=== PATIENT | male | born 1950 | race Caucasian/White ===

== ENCOUNTER 2017-08-03 09:33 | Emergency (ER) | payer MEDICARE ==
--- NOTE | 2017-08-03 10:34 | ED ---
Lower Extremity - HPI Summary HPI Summary: Patient presents to the ED with CC of left calf pain, decreased sensation in the left foot, and temperature change since 2 days ago. He had a long segment arterial occlusion in November of this year with stent placement by Dr. Almaguer. He denied any pain s/p stent placement or symptoms of claudication, temperature changes or color changes to the extremity. Today, he notes to some acute left sided low back pain, tenderness over the femoral artery in the groin area on the left, foot pain which is worse with lying down, better with ambulation and calf pain which is better with ambulation and worse with lying down. He notes to feeling of cold and tingling sensation in his foot which improves after ambulating. He is a heavy smoker. He discontinued his plavix 2 months ago and denies any current anticoagulation. He denies SOB or chest pain. He notes to travel approxm 200 miles per day, but denies any PE or DVT to his knowledge. - History of Current Complaint Chief Complaint: EDExtremityLower Stated Complaint: LT LEG PAIN Time Seen by Provider: 08/03/17 10:12 Hx Obtained From: Patient Onset of Pain: Immediate Onset/Duration: Days Severity Initially: Moderate Severity Currently: Moderate Pain Intensity: 0 Pain Scale Used: 0-10 Numeric Timing: Intermittent, Lasting Minutes Location: Is Discrete @ - left calf and left foot Aggravating Factor(s): Other - lying flat Alleviating Factor(s): Other - ambulation Able to Bear Weight: Yes - Risk Factors Gout Risk Factors: Age Over 40, Male, Hypertension, Hyperlipidemia, Peripherial Vascular Disease DVT Risk Factors: Smoking, Recent Travel Septic Arthritis Risk Factor: Negative - Allergies/Home Medications Allergies/Adverse Reactions: Allergies Allergy/AdvReac Type Severity Reaction Status Date / Time No Known Allergies Allergy Verified 08/03/17 10:20 PMH/Surg Hx/FS Hx/Imm Hx Previously Healthy: Yes Endocrine/Hematology History: Denies: Hx Diabetes Cardiovascular History: Reports: Hx Hypertension - on medication Denies: Hx Pacemaker/ICD Respiratory History: Denies: Hx Asthma History: Reports: Hx Kidney Stones - removed 1994 Denies: Hx Dialysis, Hx Renal Disease Musculoskeletal History: Reports: Other Musculoskeletal History - RECURRING GANGLION LEFT WRIST Sensory History: Denies: Hx Contacts or Glasses, Hx Hearing Aid Opthamlomology History: Denies: Hx Contacts or Glasses Psychiatric History: Denies: Hx Panic Disorder - Surgical History Surgery Procedure, Year, and Place: 3 x right shoulder; lower back; Hx Anesthesia Reactions: No - Immunization History Hx Pertussis Vaccination: No Immunizations Up to Date: Unable to Obtain/Confirm Infectious Disease History: No Infectious Disease History: Denies: Traveled Outside the [place] in Last 30 Days - Social History Occupation: Employed Full-time Lives: With Family Alcohol Use: Weekly Alcohol Amount: 3-4 DRINKS/WEEK Hx Substance Use: Yes Substance Use Type: Reports: Marijuana Substance Use Comment - Amount & Last Used: OCCASIONAL, NOT RECENT Hx Tobacco Use: Yes Smoking Status (MU): Heavy Every Day Tobacco Smoker Type: Cigarettes Do You Chew or Dip Tobacco: No Amount Used/How Often: 1 PPD FOR 40 YRS Have You Chewed or Dipped Tobacco in the LAST YEAR: No Length of Time of Smoking/Using Tobacco: 40 YRS Have You Smoked in the Last Year: Yes Review of Systems Negative: Fever, Chills, Fatigue Eyes: Negative ENT: Negative Cardiovascular: Negative Respiratory: Negative Negative: no symptoms reported, see HPI Positive: Myalgia - left calf pain Positive: Paresthesia. Negative: Weakness, Numbness Psychological: Normal All Other Systems Reviewed And Are Negative: Yes Physical Exam Triage Information Reviewed: Yes Vital Signs On Initial Exam: Initial Vitals Temp Pulse Resp BP Pulse Ox 98.2 F 117 20 152/78 96 08/03/17 09:38 08/03/17 09:38 08/03/17 09:38 08/03/17 09:38 08/03/17 09:38 Vital Signs Reviewed: Yes Appearance: Positive: Well-Appearing, No Pain Distress, Well-Nourished Skin: Positive: Warm, Skin Color Reflects Adequate Perfusion Head/Face: Positive: Normal Head/Face Inspection Eyes: Positive: EOMI, DADA, Conjunctiva Clear Neck: Positive: Supple, No Lymphadenopathy Respiratory/Lung Sounds: Positive: Clear to Auscultation, Breath Sounds Present Cardiovascular: Positive: RRR, Other - weak intermittent pulse with doppler over bilateral pedal pulses, unable to appreciate posterior tibial or popliteal pulses Musculoskeletal: Positive: Pain @ - left hip and back Neurological: Positive: CN Intact II-III, Normal Gait, Speech Normal Psychiatric: Positive: Normal AVPU Assessment: Alert - [place] Coma Scale Coma Scale Total: 15 Diagnostics - Vital Signs Vital Signs Temp Pulse Resp BP Pulse Ox 08/03/17 10:17 98.2 F 92 20 138/64 94 08/03/17 09:38 98.2 F 117 20 152/78 96 - Laboratory Result Diagrams: 08/03/17 10:36 08/03/17 10:36 Lab Statement: Any lab studies that have been ordered have been reviewed, and results considered in the medical decision making process. Lower Extremity Course/Dx - Course Course Of Treatment: Patient presents with claudication, temperature changes, and slight discoloration to the left foot (pallor) 9 months s/p stent placement for long segment arterial occlusion. Dr. Almaguer placed stent. Called Dr. Almaguer at 10:30a who recommended checking kidney function and CTA. Doppler used to try to obtain pulses. Weak intermittent left pedal pulse found on doppler and unable to find left posterior tibial; unable to find the right pedal or posterior tibial on doppler. Unable to find popliteal on the left, but able to appreaciate on the right. Lab work obtained and WNL. CTA shows IMPRESSION: 1. COMPLETE OCCLUSION OF THE LEFT COMMON AND EXTERNAL ILIAC ARTERY STENT. 2. SEVERE ATHEROSCLEROTIC CHANGE IN THE SUPERFICIAL FEMORAL ARTERIES DESCRIBED. 3. THERE ARE 3 HYPERVASCULAR LESIONS WITHIN THE LIVER WHICH ARE UNCHANGED. RECOMMEND A. FOLLOW-UP HEPATIC ULTRASOUND FOR FURTHER EVALUATION. 4. STATUS POST POSTERIOR SPINAL FUSION ON THE RIGHT SIDE AT THE L 4 THROUGH S1 LEVELS. THERE IS LUCENCY AROUND THE PEDICLE SCREWS WITHIN THE L5 AND S1 VERTEBRA MOST CONSISTENT. WITH LOOSENING. Dr. Almaguer to see the patient in the ED at 1:30pm. Recommended follow up with him this week for possible re- stenting and recommended plavix 75mg daily. Given 30 days of rx. Patient made aware of all results and he is ready for discharge. - Diagnoses Differential Diagnosis/HQI/PQRI: Positive: Other - arterial occlusion, DVT, femoral artery occlusion Provider Diagnoses: Peripheral vascular disease, Arterial occlusion - Physician Notifications Discussed Care Of Patient With: Alejandro Almaguer Time Discussed With Above Provider: 13:55 - Discussed with Dr. Almaguer at 11am as well as 2pm Instructed by Provider To: Will See In ED - request out for consult with Dr. Almaguer Discharge - Discharge Plan Condition: Stable Disposition: HOME Prescriptions: Clopidogrel TAB* [Plavix TAB*] 75 mg PO DAILY #30 tab Patient Education Materials: Peripheral Artery Disease (ED) Referrals: Julio Diaz MD [Primary Care Provider] - Alejandro Almaguer MD [Medical Doctor] - Additional Instructions: Follow up with Dr. Almaguer's office this week. Call office for appt tomorrow morning Begin Plavix today. 1 tab once daily I have given you a prescription for 30 days
[2017-08-03 10:51] LABS: Hematocrit 40 % (42-52); Hemoglobin 13.6 g/dl (14.0-18.0); Mean Corpuscular HGB Conc 34 g/dl (31-36); Mean Corpuscular Hemoglobin 33 pg (27-31); Mean Corpuscular Volume 97 fL (80-94); Mean Platelet Volume 9 um3 (7.4-10.4); Red Blood Count 4.12 10^6/ul (4.0-5.4); Red Cell Distribution Width 13 % (10.5-15); White Blood Count 11.6 10^3/ul (3.5-10.8)
[2017-08-03 11:10] LABS: Albumin 4.3 g/dL (3.2-5.2); BUN/Creatinine Ratio 14.3 (8-20); C Reactive Protein 53.92 mg/L (< 5.00); Calcium 9.4 mg/dL (8.6-10.3); EGFR African American 117.6 (>60); EGFR Non-African American 91.4 (>60); Globulin 2.7 g/dL (2-4); Potassium 3.9 mmol/L (3.5-5.0); Total Bilirubin 0.8 mg/dL (0.2-1.0)
[2017-08-03] MEDS ORDERED: Iohexol 350* (CONTRAST) 500 ML MDV IV ONE (11:42)
[2017-08-03 12:01] LABS: Erythrocyte Sed Rate 36 mm/Hr (0-40)
--- NOTE | 2017-08-03 12:53 | RAD ---
INDICATION: Claudication, possible occlusion of the previous left iliac stent. COMPARISON: Comparison is made with a prior CT angiogram of the abdomen and lower legs from October 16, 2016. TECHNIQUE: A CT angiogram of the abdomen and pelvis and lower extremities was performed with intravenous contrast following intravenous injection of 125 ml of Omnipaque 350 nonionic contrast. Contiguous axial sections were obtained from the lung bases through the ankles. Images were reconstructed in the coronal and sagittal planes and in a 3-D volume rendered reformatted. FINDINGS: CT OF THE ABDOMEN AND PELVIS: Images at the lung bases demonstrate mild left lower lobe subsegmental atelectasis. No pleural effusion is seen. The liver and spleen are normal in size. There are 2 small hypodense lesions present within the left hepatic lobe. These are unchanged from the prior exam and most consistent with cysts. The larger lesion measures 1.4 cm in size. In addition, there are 3 small hypervascular lesions within the right hepatic lobe. The largest lesion measures 0.9 cm in size. These are unchanged from the prior exam. The imaging characteristics are nonspecific although would favor hemangiomas. Recommend a follow-up right upper quadrant ultrasound as previously noted. No calcified gallstones are seen. The pancreas appears to be within normal limits. There is a hypodense splenic lesion measuring 1.3 cm in size which is unchanged. The kidneys and adrenal glands are normal in size. No hydronephrosis is seen. No significant focal renal abnormality is seen. No significant enlarged retroperitoneal lymph nodes are seen. The stomach, small and large bowel appear nondistended. The appendix appears normal. There is moderate sigmoid diverticulosis without evidence for diverticulitis. No free intraperitoneal air or fluid is seen. The patient is status post posterior spinal fusion at the L4-S1 levels on the right side with pedicle screws. There is lucency around the pedicle screws in the L5 and S1 vertebra suggestive of loosening. There is bilateral spondylolysis present bilaterally at the L5 level. CT ANGIOGRAM OF THE ABDOMINAL AORTA: The abdominal aorta is normal in caliber. There is mild to moderate calcific and soft plaque present. The celiac, superior mesenteric and inferior mesenteric arteries appear widely patent. There are single bilateral renal arteries with mild to moderate plaque present at the origin of both arteries. CT ANGIOGRAM OF THE RIGHT LOWER EXTREMITY, RIGHT ILIAC VESSELS: There is moderate calcific plaque present within the common and external iliac arteries with mild narrowing of the common iliac artery. No hemodynamically significant stenosis is seen. The common femoral artery appears patent. The proximal and midportion of the superficial femoral artery appear widely patent. There is severe atherosclerotic change and areas of high-grade stenosis and possibly occlusion in the distal superficial femoral artery. The popliteal artery appears widely patent. There is three-vessel runoff to the lower leg. CT ANGIOGRAM LEFT LOWER EXTREMITY, LEFT ILIAC VESSELS: There is an occluded stent which extends from the aortic bifurcation to the junction of the external iliac and common femoral arteries. The superficial femoral artery is severely attenuated throughout with occlusion of the distal portion of the artery. There is reconstitution of the popliteal artery which appears widely patent. There is three-vessel runoff to the lower leg. IMPRESSION: 1. COMPLETE OCCLUSION OF THE LEFT COMMON AND EXTERNAL ILIAC ARTERY STENT. 2. SEVERE ATHEROSCLEROTIC CHANGE IN THE SUPERFICIAL FEMORAL ARTERIES DESCRIBED. 3. THERE ARE 3 HYPERVASCULAR LESIONS WITHIN THE LIVER WHICH ARE UNCHANGED. RECOMMEND A FOLLOW-UP HEPATIC ULTRASOUND FOR FURTHER EVALUATION. 4. STATUS POST POSTERIOR SPINAL FUSION ON THE RIGHT SIDE AT THE L 4 THROUGH S1 LEVELS. THERE IS LUCENCY AROUND THE PEDICLE SCREWS WITHIN THE L5 AND S1 VERTEBRA MOST CONSISTENT WITH LOOSENING.
[2017-08-03 14:30] VITALS: BP 118/65
--- NOTE | 2017-08-03 14:51 | CONSULT ---
Consult Consult: Date of Service: 08/03/17 Reason for Consultation: Sudden onset left leg pain with history of left iliac artery revascularization and stenting 11/06/16 HPI: Mr. Franks is a 66 YOM that is 9 months status revascularization and stenting of the left common and external iliac arteries with two overlapping 7x59 mm Atrium Icast covered stents. Until 08/01/17 Mr. Franks experienced reduction in LLE claudication and rest pain. On 08/01/17 he reports feeling a sudden onset of pain in his groin when getting out of his car. From that point until present he has had LLE pain that would onset after walking only 20 yards. At rest he experiences aching pain in his posterior leg down his heel and into foot. He denies paresthesia or weakness of the LLE. He denies any significant discoloration of the leg, foot or toes. He continues to smoke up to 1/2 PPD cigarettes daily. In addition to widespread atherosclerosis his medical history is significant for right side L4-S1 transpedicular fixation. PE: Selected Entries 08/03/17 08/03/17 11:38 14:30 Temperature 98.3 F Temperature Temporal Artery Source Scan Pulse Rate 84 Respiratory 16 Rate Blood Pressure 118/65 (mmHg) O2 Sat by Pulse 95 Oximetry NAD, AAO x 3 RRR, S1/S2 CTAB wtih vesicular breath sounds Abdomen soft, NT Cannot palpate left BARIATRIC NURSE or pop pulse 1+ palpable left DPA left foot and leg are warm to touch 5/5 motor strength in LLE Sensation to light touch intact CTA Aorta w/ runoff: (personally reviewed by me) Occlusion of the left MOIRA-EIA stent with long segment narrowing of the left SFA w/wo focal occlusion of the SFA at the junction with the popliteal artery. Essentially CTA is similar to pre-intervention CTA dated 10/16/16. Laboratory Tests 08/03/17 10:36 WBC 11.6 H Hgb 13.6 L Hct 40 L Assessment: 66 YOM with occluded left MOIRA-EIA stent 9 months post intervention. Plan: As was discussed with Mr. Franks in the ER, the options are: to do nothing as he is essentially in the same situation from a vascular standpoint that he was when I first met him in the fall 2015; undergo angiography and attempt revascularization likely with paclitaxel coated balloons; or see a vascular surgeon to discuss surgical bypass options. The endovascular option will be technically feasible as it occlusion appears "soft" on CTA and his recurrence of symptoms is new. I will likely elect to try to revascularize the left SFA during the same intervention to augment the outflow of the stented left iliac arteries. But experience, and the fact that he continues to smoking, indicate that the longevity of the intervention will be limited. He will be discharged from the ER and I will call him tomorrow to inquire about his decision. 1. Plavix 75 mg PO daily (in preparation of potential angiographic procedure). 2. D/C home for now. Our clinic will call him tomorrow, Wednesday08/04/17.
== END 2017-08-03 14:30 | disposition home or self-care (01) ==
LOC: ED 09:33
DX: I73.9 Peripheral vascular disease, unspecified (principal); I74.9 Embolism and thrombosis of unspecified artery; M79.662 Pain in left lower leg
CPT/HCPCS: 36415; 75635; 80053; 82550; 83874; 85027; 85610; 85652; 86140; 99282; Q9967

== ENCOUNTER 2017-08-05 10:25 | Inpatient (IN) | payer MEDICARE ==
[2017-08-05] MEDS ORDERED: LORazepam TAB(*) 1 MG ONE (11:34)
[2017-08-05] MEDS ORDERED: Heparin DRIP 25,000 UNITS(*) 25,000 UNITS/500 ML BAG IVPB SCH (11:45)
[2017-08-05] MEDS ORDERED: Iohexol 350 (CONTRAST) 200 ML MDV IV ONE (12:16)
[2017-08-05] MEDS ORDERED: Heparin DRIP 25,000 UNITS(*) 25,000 UNITS/500 ML BAG ONE (12:16)
[2017-08-05] MEDS ORDERED: Heparin 2 UNITS/ML IVPREMIX* 3,000 ML IV ONE (12:16)
[2017-08-05] MEDS ORDERED: Lidocaine 1% INJ* 10 MG/ML 30 ML SDV ONE ×2 (12:16→13:38)
[2017-08-05] MEDS ORDERED: Midazolam* 1 MG/ML 5 ML VIAL (5 MG) ONE (12:37)
[2017-08-05] MEDS ORDERED: fentaNYL* 50 MCG/ML 2 ML VIAL (100 MCG VIAL) ONE ×3 (12:37→13:36)
[2017-08-05] MEDS ORDERED: Heparin(*) 1000 UNIT/ML 10 ML VIAL CATH LAB IV ONE (12:46)
[2017-08-05] MEDS ORDERED: Acetaminophen TAB* 325 MG PO PRN (15:28)
[2017-08-05] MEDS ORDERED: Ondansetron INJ* 2 MG/ML VIAL IV PRN (15:29)
--- NOTE | 2017-08-05 15:31 | CONSULT ---
Consult Consult: CRITICAL CARE MEDICINE DATE: 08/05/17 TIME: 1500 REFERRING PROVIDER: Tripp REASON/CHIEF COMPLAINT: post IR with TPA infusion HISTORY OF PRESENT ILLNESS: 66 M with h/o ongoing tob use with stent to left common and external iliac arteries 9 months ago with acute onset of worsening sx with left groin pain down leg. Eval with IR and today went for sheath and catheter placement for tpa infusion. Required sheath insertion on R and over to left with wire traversing stent. TPA and heparin gtts started with pharmacy assistance. Sheath in place and pt tolerating well. Needing ICU care for continuous tpa infusion and plans to return to OR tomorrow am. REVIEW OF SYSTEMS: As per HPI. PAST MEDICAL HISTORY: As per HPI. L4-S1 fixation in [place] MEDICATIONS: Reviewed. asa 325mg, plavix 75mg, nifedipine , Lipitor ALLERGIES: Reviewed. SOCIAL HISTORY: Reviewed. 1/2 ppd tob (cutting down); denies regular etoh use. FAMILY HISTORY: Noncontributory at present. PHYSICAL EXAM: Vital Signs: Reviewed. Neurologic: awake, nonfocal HEENT: anicteric, perrl Cardiovascular: S1 S2, reg no m Respiratory: clear Abdomen: obesem soft nt Extremities: left foot colder then R. No parsthesia complaints other then mild at plantar of foot. weak to palpate pulse at baseline. Good movement of leg. LABS: Reviewed. IMAGING: Reviewed. MEDICATIONS: Reviewed. ASSESSMENT: 66 M with acute stent occlusion undergoing tpa/heparin infusions with return OR eval tomorrow am PAD Tob use disorder PLAN: Neurologic: stable. prns. has chronic back pain. Cardiovascular: perfusing globally. No cardiac history from pt other then HTN. can remain on oupt rx. Respiratory: tolerating well. add nicotine td and inhaled. tob cessation. prn nebs Gastrointestinal: po as able. npo for needs tomorrow Renal/Metabolic: cruz for comfort and monitoring. lytes with am labs Infectious Disease: no abx needs Hematology: f/u labs per IR. ptt goal 30-40 Endocrine: f/u and glu needs Musculoskeletal: bedrest. reverese trendelenberg. orders per IR for neurovascular checks Psych/Social: pt in good spirits Supportive and preventative care as ordered. SUP: po as able VTE prophylaxis: heparin gtt already Cruz catheter given critical illness Disposition: ICU with IR following Code Status: Full Critical Care Time: 35min D/w Dr. Tripp Alvarado, DO
[2017-08-05] MEDS: ALTEPLASE SCH ×2 (15:39)
[2017-08-05] MEDS ORDERED: Nicotine Inhaler* 10 MG AMP INH PRN (15:51)
[2017-08-05] MEDS ORDERED: Mouth Piece, Nicotine* 1 EACH CARTRIDGE INH ONE (16:00)
[2017-08-05 16:01] LABS: Hematocrit 39 % (42-52); Hemoglobin 12.9 g/dl (14.0-18.0)
[2017-08-05] MEDS: Nicotine PATCH 21 MG/24 HR* PATCH TRANSDERM SCH (16:29)
[2017-08-05] MEDS: Morphine INJ* 2 MG/ML 1 ML SYRINGE IV PRN ×2 (17:13→21:15)
[2017-08-05] MEDS: Atorvastatin* 20 MG TAB PO SCH (17:13)
[2017-08-05] MEDS ORDERED: Albuterol 2.5 MG/3 ML NEB.SOL* (0.083%) INH PRN (17:14)
--- NOTE | 2017-08-05 18:20 | RAD ---
CPT II Codes: 6045F Procedure(s) performed: 1. Diagnostic pelvic arteriogram. (Despite recent CTA this imaging was necessary to more carefully depict the occluded left iliac stents for the purpose of a revascularization procedure). 2. Wire and catheter crossing across occluded left common and external iliac arterial stents for the purpose of overnight TPA thrombolysis. Date of service: August 05, 2017 Indication for procedure: Acute to subacute occlusion of left common and external iliac arterial stents that were placed November 06, 2016. Comparison: CTA aorta with runoff dated August 03, 2017 and angiographic images from the patient's November 06, 2016 left common and external iliac artery revascularization and stenting. Contrast: 65 mL Omnipaque 350 Fluoroscopy Time: 10.6 minutes Vessels Accessed: Percutaneous access was obtained with ultrasound guidance in the left common femoral artery in the retrograde direction. A working sheath could not be advanced into this artery due to more superior occlusion and therefore right common femoral arterial access was obtained. Right common femoral arterial access was obtained with ultrasound guidance in the retrograde direction towards the heart. Catheter arteriography, with the catheter tip located within the lumen of the following arteries, was performed at the right external iliac artery and aorta. Anesthesia: Conscious sedation with IV Fentanyl and Versed as well as local 1% lidocaine injected locally at the arteriotomy site. Conscious sedation time: Timeout: 1247 hours Case end: 1437 hours Total conscious sedation time: 1 hour and 50 minutes Additional medications: * Initiation of intra-arterial catheter directed TPA. * IV heparin 2500 Units. * The patient received 1 mg of p.o. Ativan prior to the onset of the procedure. PROCEDURE NOTE AND INTRAPROCEDURAL IMAGING FINDINGS: Immediately prior to the procedure the patient signed consent after thoroughly discussing all risks, benefits and alternative therapies. A detailed discussion at the time of consent was held with the patient talking about complications specific to TPA thrombolysis therapy including bleeding risks and compartment syndrome. The patient was positioned on the fluoroscopy table in the supine position and the bilateral groins were shaved, prepped and the patient was draped in standard sterile fashion. Using fluoroscopic imaging the location of the left common femoral head was marked externally with a skin marker on the patient's groin. Utilizing sonographic guidance and palpation, the left common femoral artery was cannulated overlying the femoral head with an 21-gauge needle. An ultrasound image was saved. A microwire was slowly and smoothly advanced in the retrograde direction towards the occluded left iliac stents. The microwire was not able to be advanced beyond the distal cap of the occluded left iliac stent. With a very small wire "purchase" attempt was made to advance a 5-Yemeni sheath into the artery without success. Despite successful needle and microwire access disease in the left common femoral artery a sheath could not be advanced into the arterial lumen. At this point it was determined to access the right common femoral artery to attempt to revascularize the occluded stent from the contralateral access point. Using fluoroscopic imaging the location of the right common femoral head was marked externally with a skin marker on the patient's groin. Utilizing sonographic guidance and palpation, the right common femoral artery was cannulated overlying the femoral head with an 21-gauge needle. An ultrasound image was saved. A microwire was slowly and smoothly advanced into the common femoral artery under sonographic and fluoroscopic imaging. There was a small amount of buckling of the wire. The wire was retracted and advanced further to determine whether this was the consequence of dissection or tortuosity of the arterial lumen. Ultimately the wire was smoothly advanced under fluoroscopic control into the infrarenal abdominal aorta. The needle was removed and a 5-Yemeni sheath was advanced into the right common femoral artery with the tip terminating at the distal right external iliac artery. Contrast arteriography was performed to further discern if a dissection occurred. Arteriography indicated true lumen access. The inner stiffener and microwire were removed and a 0.035 inch hydrophilic wire was advanced up to the aorta under fluoroscopic control without buckling or bending of the wire. The 5-Yemeni catheter was replaced with a 5-Yemeni SideArm sheath. The patient conveyed discomfort when the sheath was advanced. A second arteriogram was performed through the side arm of the access sheath again demonstrating intraluminal access and no dissection. Over the wire a 5-Yemeni straight flush catheter was advanced into the abdominal aorta and with the tip in the distal aorta a distal aortogram and bilateral iliac arteriogram was performed. This further confirmed long segment occlusion of the left internal iliac artery stents with reconstituted filling of the diminutive left common femoral artery on the delayed phase imaging. There is questionable filling of contrast in a dissection plane along the distal right lateral margin of the infrarenal abdominal aorta at the level of the lumbar arteries. Subsequent imaging taken minutes after this image does not show any retention of contrast in a dissection plane. The wire was reinserted and the flush catheter replaced with a 5-Yemeni rim catheter. Utilizing a combination of this reverse curve catheter and a hydrophilic Glidewire the proximal calf of the occluded stent was accessed and wire cannulation across the occluded stent was achieved ultimately advancing the wire as far as the left superficial femoral artery. Next, a 5-Yemeni [employer] Claire 10 cm multi sidehole catheter was advanced over the wire into the thrombosed left iliac stent. Blood could not be aspirated through the side arm of the 5-Yemeni sheath and therefore it was decided to upsize the access sheath to a 6-Yemeni sheath. Over the wire the multiside hole flush catheter was removed followed by the 5-Yemeni SideArm sheath. A 6-Yemeni SideArm C was then advanced under fluoroscopic control until the tip terminated at the right external iliac artery. The 5-Yemeni 10 cm length multi-sidehole catheter was advanced again into the thrombosed stent and then beyond into the left common femoral and superficial femoral arteries. At this point the side arm of the access sheath was connected to a pressure bag of heparinized saline for slow infusion to maintain patency of the sheath. After removing all air from the infusion catheter the infusion catheter was connected to tubing for the TPA infusion. The infusion catheter was then drawn back under fluoroscopic control so it appropriately spanned the occluded left iliac artery stents. A pursestring suture was tied around the sheath exit site in the right groin and then the suture was secured to the sheath. Next the infusion catheter was marked indicating externally the appropriate location of the catheter to be covering the thrombosed stent. The entire area was then dressed with sterile gauze and Tegaderm to maintain sterility and 2 prevent migration of either the sheath or catheter in the ICU. The left groin was dressed with a Kristine from dressing secured with a transparent Tegaderm for the Z visible evaluation in the ICU. The patient tolerated the procedure well and was transferred to the intensive care unit for overnight TPA catheter thrombolysis. SUMMARY OF PROCEDURE, IMAGING FINDINGS AND INTERVENTIONS PERFORMED: 1. Diagnostic studies performed: * Arterial access was obtained at the left common femoral artery in the retrograde direction (i.e. towards the heart) with ultrasound guidance. A sonographic image was recorded. Unfortunately despite adequate needle and wire cannulation a workable sheath could not be advanced into the diminutive artery due to more superior arterial occlusion. * Arterial access was obtained at the left common femoral artery in the retrograde direction (i.e. towards the heart) with ultrasound guidance. A sonographic image was recorded. * Diagnostic catheter angiography (necessary to carefully characterize the occluded left iliac artery stents and to perform the appropriate interventions) was performed with the catheter tip in the left external iliac artery and aorta. * Catheter arteriography was performed of the lower abdominal aorta, bilateral iliac arterial system and the proximal portions of the femoral arteries. 2. Interpretation of diagnostic studies performed: * Full length occlusion of previously deployed left iliac artery stents. * The aortogram revealed what appeared to be contrast filling a right of midline dissection plane at the level of the lower lumbar arteries. Subsequent imaging at this area did not reveal retention of contrast in this area indicating this was a transient occurrence. 3. Surgical interventions performed: * Catheter and wire cannulation of the occluded left iliac artery stents from the contralateral right common femoral arterial access point in the antegrade direction. * Placement of a multi-sidehole infusion catheter across the occluded right common iliac artery stents. 4. Interpretation of interventions performed: * The multi-sidehole infusion catheter is appropriately positioned to deliver TPA thrombolysis overnight in the ICU to the occluded left iliac artery stent. Plan: 1. Admission to the intensive care unit where the patient will receive a slow infusion of tpa 1 mg/10 mL into the multi sidehole catheter which spans the occluded left iliac artery stent. 2. Heparin gtt titrated to achieve a PTT of 30-40. 3. Appropriate laboratory monitoring will include H \\T\\ H, fibrinogen level and PTT. 4. The ICU staff was carefully instructed to monitor for signs of compartment syndrome listed and described in a "nursing communication" order and in person. 5. Clinical management as well as signs of complication were discussed and reviewed with the ICU attending as well as the nurse practitioner from the hospitalist staff. All parties were given Dr. Almaguer's contact numbers and encouraged to call with any questions or suspicion of complication.
--- NOTE | 2017-08-05 18:59 | PN ---
Progress Note - Progress Note Date of Service: 08/05/17 SOAP: Subjective: Patient with pain complaints of 4/10 at left distal foot and low back as well as 6/10 pain at right HOME THEATER SPECIALIST sheath site. Denies numbness different from what he experiences at home in the left leg before this intervention. Objective: [] Laboratory Tests 08/05/17 08/05/17 08/05/17 11:00 15:48 15:48 Hgb 12.9 L Hct 39 L APTT 28.9 34.1 Fibrinogen 536 H 462 H 08/05/17 17:25 Hgb Hct APTT Fibrinogen 387 Selected Entries 08/05/17 18:16 Pulse Rate 81 Heart Rate 80 Respiratory 15 Rate Blood Pressure 144/78 (mmHg) Blood Pressure 91 Mean O2 Sat by Pulse 95 Oximetry Doppler pulses at left DPA and SURFACER remain present. NAD, AAO x 3 Right HOME THEATER SPECIALIST sheath site is tender to palpation, but soft and the dressing has stable dried blood. Catheter is in stable position. Left groin soft, nontender with C/D/I dressing. Left great toe with cyanotic discoloration. Great toe capillary refill exceeds 2 seconds. During bedside the evaluation the patient was allowed to dangle his left leg over the side of the bed and his foot and toes "pinked" up and his left foot pain resolved within seconds. Assessment: 66 YOM status post pelvic arteriogram and multi-sidehole catheter placement across his recently occluded left iliac stents for the purpose of overnight TPA infusion. Plan: 1. Overnight TPA infusion through multi-sidehole catheter (inserted via right HOME THEATER SPECIALIST access sheath) positioned in occluded left iliac stent at a rate of 1 mg/ 10mL per hour. 2. Heparin infusion currently at 400 U/hr for goal PTT of 30-40. 3. Q 2hours LLE exams for compartment syndrome as described and instructed by Dr. Almaguer. Should this rare complication occur, Dr. Devine is the orthopedic surgeon director of clinical applications and is prepared to do emergent fasciotomy if necessary. 4. H&H, fibrinogen and PTT checks as ordered. If fibrinogen <100, then stop TPA and call Dr. Almaguer 5. Anticipate repeat pelvic arteriography and stent repair 08/06/17 at 0800 hours.
[2017-08-05 20:07] LABS: Hematocrit 38 % (42-52); Hemoglobin 12.5 g/dl (14.0-18.0)
[2017-08-05] MEDS ORDERED: Nicotine Patch Removal NOTE PATCH OFF SCH (21:00)
[2017-08-05] MEDS: Morphine INJ* 2 MG/ML 1 ML SYRINGE ONE (23:32)
[2017-08-06 01:17] LABS: Hematocrit 35 % (42-52); Hemoglobin 11.7 g/dl (14.0-18.0)
[2017-08-06] MEDS: Morphine INJ* 2 MG/ML 1 ML SYRINGE IV PRN ×5 (01:31→12:35)
[2017-08-06] MEDS ORDERED: NS 0.9% 1000 ML* 1,000 ML IV SCH (04:45)
[2017-08-06 06:41] LABS: Hematocrit 36 % (42-52); Hemoglobin 11.9 g/dl (14.0-18.0); Mean Corpuscular HGB Conc 33 g/dl (31-36); Mean Corpuscular Hemoglobin 33 pg (27-31); Mean Corpuscular Volume 98 fL (80-94); Mean Platelet Volume 9 um3 (7.4-10.4); Red Blood Count 3.66 10^6/ul (4.0-5.4); Red Cell Distribution Width 13 % (10.5-15); White Blood Count 11.8 10^3/ul (3.5-10.8)
[2017-08-06 07:32] LABS: BUN/Creatinine Ratio 12.7 (8-20); Calcium 8.5 mg/dL (8.6-10.3); EGFR African American 163.9 (>60); EGFR Non-African American 127.4 (>60); Potassium 3.9 mmol/L (3.5-5.0)
[2017-08-06] MEDS ORDERED: ceFAZolin 1 GM VIAL(*) 1 GM in NS 0.9% 50 ML* 50 ML IVPB ONE (07:41)
--- NOTE | 2017-08-06 07:55 | PN ---
Progress Note - Progress Note Date of Service: 08/06/17 SOAP: Subjective: 4/10 pain at bilateral groins and back. Patient reports "tingling" along plantar surface of foot and heel not different than his baseline Objective: [] Selected Entries 08/06/17 08/06/17 08/06/17 07:00 07:20 07:24 Temperature 100.6 F Pulse Rate 80 Heart Rate 79 Respiratory 14 Rate Blood Pressure 156/74 (mmHg) Blood Pressure 113 Mean O2 Sat by Pulse 95 Oximetry Laboratory Tests 08/06/17 08/06/17 08/06/17 06:14 06:14 06:14 WBC 11.8 H Hgb 11.9 L Hct 36 L APTT 39.2 H Fibrinogen 315 BUN 8 Creatinine 0.63 L Est GFR (Non-Af Amer) 127.4 NAD, AAO x 3 Abdomen soft, NT Bruising and "ooze" at skin nicks in left groin. Groin is soft. Right LABORER SHAFT SINKING sheath site is soft, minimally tender Left foot doppler pulses present Left foot motor function grossly intact No significant tenderness in lower leg No pain elicited with passive dorsi/plantar flexion of the left ankle Sensation intact to light touch Assessment: 66 YOM s/p catheter directed tpa infusion into occluded left iliac stents. "Oozing" at left groin from skin nicks appears to be superficial. There is ecchymosis, but no firmness to indicate hematoma formation or active arterial bleed. Mild leukocytosis and temperature is suspected to be inflammatory related to superficial ecchymosis. Plan: 1. To angiography suite to evaluate left iliac artery clot lysis and potentially repair stent. 2. Ancef 1 gram now. 3. Blood cultures to be sent. 4. Manual pressure to left groin. Underlying artery will be evaluated during procedure- arterial bleed unlikely. Bleeding/oozing will subside after cessation of heparin and tpa.
[2017-08-06] MEDS ORDERED: fentaNYL* 50 MCG/ML 2 ML VIAL (100 MCG VIAL) ONE ×4 (07:59→10:36)
[2017-08-06] MEDS ORDERED: Heparin 2 UNITS/ML IVPREMIX* 2,000 ML IV ONE (07:59)
[2017-08-06] MEDS ORDERED: Flumazenil* 0.1 MG/ML 5 ML MDV ONE (07:59)
[2017-08-06] MEDS ORDERED: Naloxone* 0.4 MG/ML 1 ML VIAL ONE (07:59)
[2017-08-06] MEDS ORDERED: Midazolam* 1 MG/ML 5 ML VIAL (5 MG) ONE ×2 (07:59→10:36)
[2017-08-06] MEDS ORDERED: Heparin(*) 1000 UNIT/ML 10 ML VIAL CATH LAB IV ONE (07:59)
[2017-08-06] MEDS ORDERED: ALTEPLASE ONE ×2 (08:00)
[2017-08-06] MEDS ORDERED: Iohexol 350 (CONTRAST) 200 ML MDV IV ONE (08:00)
[2017-08-06] MEDS ORDERED: Lidocaine 1% INJ* 10 MG/ML 30 ML SDV ONE (08:32)
[2017-08-06] MEDS ORDERED: Pneumococcal *Vac Polyvalent 0.5 ML VIAL IM ONE (09:00)
[2017-08-06] MEDS ORDERED: NIFEdipine ER TAB* 30 MG PO SCH (09:00)
[2017-08-06] MEDS ORDERED: Aspirin EC TAB* 325 MG PO SCH (09:00)
[2017-08-06] MEDS ORDERED: Influenza VAC *QUAD* 2017-18* 0.5 ML SYRINGE IM ONE (09:00)
[2017-08-06] MEDS ORDERED: Clopidogrel TAB* 75 MG PO SCH (09:00)
[2017-08-06] MEDS ORDERED: Heparin 2 UNITS/ML IVPREMIX* 1,000 ML IV ONE (09:31)
[2017-08-06] MEDS ORDERED: nitroGLYCERIN DRIP* 250 ML ONE (10:04)
[2017-08-06] MEDS: Nicotine PATCH 21 MG/24 HR* PATCH TRANSDERM SCH (11:34)
[2017-08-06] MEDS ORDERED: Morphine INJ* 4 MG/ML 1 ML SYRINGE IV ONE (12:15)
[2017-08-06] MEDS ORDERED: Lidocaine 2% PF * 5 ML VIAL ONE (12:31)
[2017-08-06] MEDS: Morphine INJ* 2 MG/ML 1 ML SYRINGE ONE (12:40)
[2017-08-06] MEDS: ALTEPLASE SCH ×2 (14:17)
--- NOTE | 2017-08-06 16:35 | PN ---
Subjective Date of Service: 08/06/17 Interval History: Mr. Franks states that he is feeling much better now though he has pain in his groins after the procedure. He denies pain in his legs now. He further denies chest pain, SOB, nausea, or abdominal pain. Objective Active Medications: Acetaminophen (Tylenol Tab*) 650 mg PO Q4H PRN Albuterol (Ventolin 2.5 Mg/3 Ml Neb.Iris*) 2.5 mg INH Q4H PRN Aspirin (Ecotrin Ec Tab*) 325 mg PO DAILY [facility] Atorvastatin Calcium (Lipitor*) 20 mg PO QPM [facility] Clopidogrel Bisulfate (Plavix Tab*) 75 mg PO DAILY [facility] Sodium Chloride (Ns 0.9% 1000 Ml*) 1,000 mls @ 150 mls/hr IV PER RATE [facility] Morphine Sulfate (Morphine Inj (Syringe)*) 2 mg IV Q2H PRN Nicotine (Nicotine Inhaler*) 10 mg INH Q2H PRN Nicotine (Nicotine Patch 21 Mg/24 Hr*) 1 patch TRANSDERM DAILY@0800 [facility] Nifedipine (Procardia Xl Tab*) 30 mg PO DAILY [facility] Ondansetron HCl (Zofran Inj*) 4 mg IV Q6H PRN Pharmacy Profile Note (Nicotine Patch Removal Note*) 1 note PATCH OFF 2100 [facility] Vital Signs 08/05/17 08/05/17 08/05/17 16:30 16:45 17:00 Temperature Pulse Rate 74 75 77 Respiratory 17 17 20 Rate Blood Pressure 139/71 134/70 134/67 (mmHg) O2 Sat by Pulse 94 96 96 Oximetry 08/05/17 08/05/17 08/05/17 17:13 17:15 17:30 Temperature Pulse Rate 79 82 Respiratory 20 19 22 Rate Blood Pressure 149/69 139/72 (mmHg) O2 Sat by Pulse 96 95 Oximetry 08/05/17 08/05/17 08/05/17 17:45 18:00 18:01 Temperature Pulse Rate 78 84 Respiratory 20 14 16 Rate Blood Pressure 140/70 133/79 (mmHg) O2 Sat by Pulse 95 95 Oximetry 08/05/17 08/05/17 08/05/17 18:16 18:30 18:45 Temperature Pulse Rate 81 83 78 Respiratory 15 21 20 Rate Blood Pressure 144/78 162/81 161/76 (mmHg) O2 Sat by Pulse 95 95 94 Oximetry 0908/05/17 08/05/17 19:00 19:15 19:30 Temperature Pulse Rate 77 82 80 Respiratory 17 16 23 Rate Blood Pressure 145/71 149/77 141/70 (mmHg) O2 Sat by Pulse 95 96 96 Oximetry 08/05/17 08/05/17 08/05/17 19:45 20:00 20:15 Temperature 99.9 F Pulse Rate 77 78 80 Respiratory 19 20 18 Rate Blood Pressure 141/67 142/70 139/69 (mmHg) O2 Sat by Pulse 94 95 95 Oximetry 08/05/17 08/05/17 08/05/17 21:00 21:15 21:16 Temperature Pulse Rate 81 80 Respiratory 20 21 22 Rate Blood Pressure 144/89 133/75 (mmHg) O2 Sat by Pulse 95 95 Oximetry 08/05/17 08/05/17 08/05/17 21:30 21:45 21:46 Temperature Pulse Rate 73 80 79 Respiratory 19 26 25 Rate Blood Pressure 131/66 138/69 131/67 (mmHg) O2 Sat by Pulse 94 94 93 Oximetry 08/05/17 08/05/17 08/05/17 21:55 22:00 22:19 Temperature Pulse Rate 75 Respiratory 18 15 18 Rate Blood Pressure 132/64 (mmHg) O2 Sat by Pulse 93 Oximetry 08/05/17 08/05/17 08/05/17 23:00 23:14 23:32 Temperature Pulse Rate 74 73 Respiratory 20 18 19 Rate Blood Pressure 130/67 140/61 (mmHg) O2 Sat by Pulse 94 95 Oximetry 08/06/17 08/06/17 08/06/17 00:00 00:03 00:08 Temperature 98.8 F Pulse Rate 72 67 Respiratory 15 18 19 Rate Blood Pressure 132/66 (mmHg) O2 Sat by Pulse 95 94 Oximetry 08/06/17 08/06/17 08/06/17 01:00 01:31 02:00 Temperature Pulse Rate 74 72 Respiratory 19 14 12 Rate Blood Pressure 123/72 128/61 (mmHg) O2 Sat by Pulse 96 95 Oximetry 08/06/17 08/06/17 08/06/17 03:00 03:29 04:00 Temperature 98.7 F Pulse Rate 77 66 Respiratory 14 17 13 Rate Blood Pressure 129/101 147/67 (mmHg) O2 Sat by Pulse 94 93 Oximetry 08/06/17 08/06/17 08/06/17 04:40 05:00 05:07 Temperature Pulse Rate 69 Respiratory 21 10 17 Rate Blood Pressure 142/74 (mmHg) O2 Sat by Pulse 94 Oximetry 08/06/17 08/06/17 08/06/17 05:37 05:41 05:42 Temperature Pulse Rate 78 72 Respiratory 12 16 15 Rate Blood Pressure 128/70 129/71 (mmHg) O2 Sat by Pulse 98 97 Oximetry 08/06/17 08/06/17 08/06/17 06:00 06:11 07:00 Temperature Pulse Rate 75 80 Respiratory 22 19 19 Rate Blood Pressure 141/69 156/74 (mmHg) O2 Sat by Pulse 97 95 Oximetry 08/06/17 08/06/17 08/06/17 07:20 07:24 07:41 Temperature 100.6 F Pulse Rate Respiratory 14 17 Rate Blood Pressure (mmHg) O2 Sat by Pulse Oximetry 08/06/17 08/06/17 08/06/17 08:00 08:05 08:16 Temperature Pulse Rate 83 83 83 Respiratory 18 18 18 Rate Blood Pressure 143/68 128/66 (mmHg) O2 Sat by Pulse 95 96 96 Oximetry 08/06/17 08/06/17 08/06/17 11:35 11:44 11:45 Temperature 99.8 F Pulse Rate 86 82 Respiratory 20 Rate Blood Pressure 145/76 (mmHg) O2 Sat by Pulse 93 91 Oximetry 08/06/17 08/06/17 08/06/17 11:50 12:00 12:07 Temperature 99.9 F Pulse Rate Respiratory 14 18 Rate Blood Pressure 143/76 (mmHg) O2 Sat by Pulse Oximetry 08/06/17 08/06/17 08/06/17 12:15 12:30 12:35 Temperature Pulse Rate 82 95 Respiratory 22 16 18 Rate Blood Pressure 143/68 143/80 (mmHg) O2 Sat by Pulse 88 94 Oximetry 08/06/17 08/06/17 08/06/17 12:40 12:45 12:48 Temperature 100.1 F Pulse Rate 86 Respiratory 17 16 Rate Blood Pressure 128/74 (mmHg) O2 Sat by Pulse 92 Oximetry 08/06/17 08/06/17 08/06/17 13:00 13:15 13:30 Temperature Pulse Rate 91 88 81 Respiratory 16 17 12 Rate Blood Pressure 155/72 157/82 143/77 (mmHg) O2 Sat by Pulse 92 95 95 Oximetry 08/06/17 08/06/17 08/06/17 13:45 14:00 14:01 Temperature Pulse Rate 82 81 Respiratory 13 14 16 Rate Blood Pressure 136/78 153/72 (mmHg) O2 Sat by Pulse 96 93 Oximetry 08/06/17 08/06/17 08/06/17 14:15 14:16 14:30 Temperature Pulse Rate 80 86 Respiratory 14 17 14 Rate Blood Pressure 152/72 160/79 (mmHg) O2 Sat by Pulse 94 93 Oximetry 08/06/17 08/06/17 08/06/17 14:36 14:45 15:00 Temperature 100.4 F Pulse Rate 82 90 Respiratory 18 17 Rate Blood Pressure 156/68 158/76 (mmHg) O2 Sat by Pulse 95 94 Oximetry 08/06/17 08/06/17 08/06/17 15:15 15:30 15:59 Temperature 101.7 F Pulse Rate 88 86 Respiratory 16 17 Rate Blood Pressure 156/72 162/70 (mmHg) O2 Sat by Pulse 94 95 Oximetry 08/06/17 08/06/17 16:00 16:08 Temperature Pulse Rate 113 Respiratory 24 18 Rate Blood Pressure (mmHg) O2 Sat by Pulse 96 Oximetry Oxygen Devices in Use Now: None Appearance: Male sitting up in chair in NAD Eyes: No Scleral Icterus Ears/Nose/Mouth/Throat: Mucous Membranes Moist Neck: Trachea Midline Respiratory: Symmetrical Chest Expansion and Respiratory Effort, Clear to Auscultation Cardiovascular: NL Sounds; No Murmurs; No JVD, No Edema Abdominal: NL Sounds; No Tenderness; No Distention Extremities: No Edema, - - Ecchymoses to groin, soft Skin: No Rash or Ulcers Neurological: Alert and Oriented x 3, NL Muscle Strength and Tone Result Diagrams: 08/06/17 06:14 08/06/17 06:14 Microbiology and Other Data: Microbiology 08/05/17 16:00 Nasal Screen MRSA (PCR)([id number]) - Final Nasal Mrsa Negative Assess/Plan/Problems-Billing Assessment: Mr. Franks is a 66 yo male with a PMH of PVD and stenting to L LE who presented on 08/05/17 with occlusion to L LE stent. - Patient Problems (1) Peripheral vascular disease Comment: - After TPA and heparin overnight, Dr. Almaguer was able to cannulize the stent to the L LE and patient now has good perfusion to the left leg. - Plan to continue aspirin, plavix and follow up with Dr. Almaguer outpatient. - Pain meds prn. (2) Hypertension Comment: - Continue nifedipine. SBP as high as 160 inpatient but could be secondary to pain and stress. Recommend follow up with PCP once recovered to consider adjusting medications. (3) Hyperlipidemia Comment: - Continue atorvastatin. (4) DVT prophylaxis Status and Disposition: Inpatient. Anticipate discharge to home later today when approved per Dr. Almaguer.
--- NOTE | 2017-08-06 17:51 | PN ---
Progress Note - Progress Note Date of Service: 08/06/17 SOAP: Subjective: Patient sitting up in chair eating dinner. No pain complaints at baseline, but groins are sore with movement. Objective: [] Selected Entries 08/06/17 08/06/17 08/06/17 15:30 15:59 16:00 Temperature 101.7 F Heart Rate 113 Respiratory Rate Blood Pressure 162/70 (mmHg) Blood Pressure 97 Mean O2 Sat by Pulse 96 Oximetry 08/06/17 16:08 Temperature Heart Rate Respiratory 18 Rate Blood Pressure (mmHg) Blood Pressure Mean O2 Sat by Pulse Oximetry NAD, AAO x 3 RRR, S1/S2 CTAB Abdomen soft, NT Right groin is ecchymotic and tender to palpation, but otherwise soft. Dressing is C/D/I. Left groin is severely ecchymotic, but ecchymosis has not spread since at least 1300 hours. Dressing is C/D/I after 2 cutaneous "figure of 8" stitches placed at skin nicks. Lower extremities motor function grossly intact. Left foot is warm to touch. 1-2+ pulses at bilateral EVP STRATEGY. 1+ left DPA and ELECTRONIC SALES AND SERVICE TECHNICIAN. Sensation intact to light touch at bilateral feet. Assessment: 66 YOM status post overnight catheter directed TPA thrombolysis of occluded left iliac artery stents (intra-arterial stent placed , 08/05/17), pelvic and LLE arteriography, revascularization and angioplasty of left SFA and balloon angioplasty of left iliac artery stent. The patient experienced superficial ecchymosis at the left groin due to two percutaneous skin nicks from attempted left common femoral arteriotomy. Bleeding was controlled after cutaneous "figure of 8" stitches x 2. Elevated temp is likely secondary to subcutaneous bleeding- septecemia considered unlikely. Plan: 1. D/C to home. 2. Pain control: Percocet 5/325, take 1 or 2 tablets PRN every 6 hours for pain. 3. Ice pack to groin(s) PRN. 4. Plavix 75 mg po daily AND Aspirin 325 mg po daily FOR LIFE. 5. Patient will be seen in endovascular clinic on 08/10/[address] Roche for groin check and suture removal. 6. Routine clinic follow up and LIN in 4 weeks (IR clinic will call to schedule appt).
[2017-08-06] MEDS ORDERED: oxyCODONE/Acetamin 5/325 MG* TAB PO PRN (18:00)
[2017-08-06] MEDS: Atorvastatin* 20 MG TAB PO SCH (18:11)
[2017-08-06 19:30] VITALS: BP 138/72
--- NOTE | 2017-08-07 10:03 | RAD ---
INDICATION: Left groin bleeding, ecchymosis and pain in a patient recently status post intra-arterial thrombolysis therapy an endovascular revascularization. COMPARISON: CTA abdomen and pelvis with runoff dated August 03, 2017. TECHNIQUE: Real time ultrasound images of the left groin were acquired with rivera scale and Doppler color flow imaging. FINDINGS: Doppler examination of the left common femoral artery and vein demonstrate adequate flow. Biphasic arterial waveforms are recorded in the left common femoral artery. There is no identification of active extravasation, suspicious aneurysmal dilatation or pseudoaneurysm. Doppler flow examination of the common femoral vein exhibits a baseline normal venous waveform. The pulsatile waveforms overlying the venous waveforms are suspected to be related to the immediately adjacent artery as opposed to being an arteriovenous fistula. No direct communication between the 2 vessels is visualized. There is heterogeneous hypoechogenicity of the subcutaneous tissue and fat overlying the vessels but there is no definite drainable subcutaneous fluid collection. IMPRESSION: 1. Sonographic findings are consistent with a subcutaneous edema without drainable hematoma or other fluid collection. 2. Appropriate patency is identified at the right common femoral arteries and veins and the proximal most portions of the superficial femoral artery, femoral profundus and femoral vein. No focal vascular abnormality including pseudoaneurysm or definite evidence of arteriovenous malformation is identified.
--- NOTE | 2017-08-07 17:01 | RAD ---
INDICATION: Evidence of gastrointestinal bleeding COMPARISON: Similar examination dated September 17, [address] abdomen pelvis dated October 03, 2015 TECHNIQUE: Following the administration of 25 millicuries of technetium 99m labelled red blood cells, serial and static, anterior images of the abdomen were obtained at 5 minute increments for a period of one hour. FINDINGS: Immediately there is increased uptake overlying the stomach with more focal uptake located at the distal pyloric region of the stomach. Widely diffuse radiotracer can be seen coursing through the small bowel for the remainder of the examination. IMPRESSION: SONOGRAPHIC FINDINGS ARE MOST CONSISTENT WITH GASTRIC BLEED LOCALIZED TO THE PYLORIC ANTRUM.
--- NOTE | 2017-08-09 09:13 | RAD ---
CPT II Codes: 6045F Procedure(s) performed: 1. Diagnostic pelvic and left lower extremity arteriogram following overnight catheter directed TPA thrombolysis of the occluded left iliac stent. 2. Revascularization and balloon angioplasty of the stenotic and/or occluded left superficial femoral artery. 3. Balloon angioplasty of the declotting left iliac stent. Date of service: July 2017 Indication for procedure: Acute thrombotic occlusion of the left iliac stent placed November 06, 2016 causing abrupt recurrence of claudication and rest pain symptoms in the left lower extremity. Comparison: Previous day angiography dated August 05, [address] abdomen and pelvis with runoff dated August 03, 2017 Contrast: 100 mL Omnipaque 300 Fluoroscopy Time: 17.2 minutes Vessels Accessed: Percutaneous access was obtained (on August 06, 2017) with ultrasound guidance in the left common femoral artery in the retrograde direction towards the heart. This same percutaneous access point was utilized for this procedure as well. Catheter arteriography, with the catheter tip located within the lumen of the following arteries, was performed at the right external iliac artery, aorta, left external iliac artery, left superficial femoral artery and within the stent spanning the left common and external iliac arteries. Anesthesia: Conscious sedation with IV Fentanyl and Versed as well as local 1% lidocaine injected locally at the arteriotomy site. Conscious sedation time: Timeout: 0908 hours Case end: 1103 hours Total conscious sedation time: 1 hour and 55 minutes Additional medications: * 200 mcg IA nitroglycerin injected intermittently throughout the course of the procedure to alleviate arterial spasm. * IV heparin 4500 Units to achieve a goal ACT of 250-300. * The patient received Ancef 1 g shortly before the onset of the procedure. PROCEDURE NOTE AND INTRAPROCEDURAL IMAGING FINDINGS: The previous day the patient underwent right common femoral arteriotomy and pelvic arteriogram followed by placement of a multiside hole catheter across the recently thrombosed left iliac stent. A multi-sidehole catheter was placed so that the patient could receive a slow infusion of TPA thrombolysis. The patient received overnight thrombolysis in the ICU and returned to the angiography suite to complete revascularization of the occluded left iliac stent and to treat other areas of arterial stenosis/occlusion. The patient was positioned on the fluoroscopy table in the supine position and the right common femoral access sheath and multiside hole catheter were thoroughly cleansed with Betadine. The bilateral groins, low abdominal and upper thigh regions were thoroughly cleansed with Betadine which was given time to dry completely. The patient was then draped in standard sterile fashion. A formal time out was performed and all parties involved with the procedure agreed to the patient and planned intervention. A hydrophilic 0.035 inch wire was advanced into the multi sidehole catheter and the catheter was removed over the wire. Next, the 6-English sheath that had been placed the previous day was removed over the wire and replaced with a new sterile 7-English SideArm sheath. Arteriography through the side arm of the access sheath was performed indicating no acute injury to the right iliac or proximal femoral arteries. With the hydrophilic wire securing access across the stent and extending as far as the left superficial femoral artery, a second wire was advanced into the aorta under fluoroscopic control. Over this second wire a pigtail flush catheter was advanced to the lower abdominal aorta and arteriography was performed to determine if the overnight thrombolyzes had cleared the left iliac stent. Arteriography demonstrated brisk flow through the previously occluded left iliac stent with arterial flow promptly filling the left common femoral artery and proximal left femoral profundus and superficial femoral artery. There is no active extravasation seen at the left common femoral artery where attempt was initially made at percutaneous access the previous day. It was suspected that an untreated stenosis above the left iliac stent at the left common iliac artery ostium may have contributed to the thrombosis of the stent and therefore intraluminal arterial pressures were acquired to determine if there was a flow limiting stenosis. The following simultaneous pressures were acquired in the right external iliac artery via the side arm of the 7-English access sheath and within the left iliac stent via the 5-English catheter. The catheter was slowly drawn back from approximately the mid -level the stent to the superior portion during the course of pressure gradient acquisition (mmHg): Systolic Diastolic Mean REIA: [id number] Left Iliac Stent: 116 52 77 The pigtail flush catheter was recannulated with a 0.035 inch wire and both wire removed. Next, a 5-English curved tip catheter was advanced to the left common femoral artery to better detect the degree of stenosis of the left superficial femoral artery. Arteriogram showed long segment stenosis in the proximal half of the left superficial femoral artery. The catheter was drawn back further with the tip approximately at the mid-level left iliac stent and direct catheter arteriography was performed demonstrating adequate patency of the distal half of the previously occluded left iliac stent. At this point in the procedure it was determined necessary to restore in-line flow in the left superficial femoral artery as it was suspected that the failure of the left iliac stent may have been exacerbated by outflow insufficiency. This would also further limited the patient's left lower extremity claudication and rest pain symptoms. Over the wire the 7-English 11 cm length sheath was removed and exchanged for a 7 -English 45 cm length sheath. Under fluoroscopic control the long sheath was advanced until the tip was at the junction of the left external iliac artery and common femoral artery. The 5-English curved tip catheter tip was advanced into the superficial femoral artery and arteriography was performed showing long segment stenosis of the proximal left superficial femoral artery with occlusion as the artery courses through Dannie's canal. The distal SFA and popliteal arteries fill by collateralized flow provided by intramuscular branch arteries. Utilizing a combination of the 5-English curved tip catheter and a 0.035 inch hydrophilic wire the stenotic and occluded portion of the left superficial femoral artery was revascularized and the wire tip was advanced into the tibioperoneal trunk. With a 0.035 inch wire securing access across the left superficial femoral artery balloon angioplasty was performed from the popliteal artery to the ostium of the left SFA utilizing a 4 mm x 100 mm Fortrex balloon. The balloon remained inflated just below burst pressure for minimum of 2 minutes during each inflation at each level of the SFA. This balloon was removed and replaced with a 5 mm x 100 mm Passeo balloon and the entire length of the superficial femoral artery was balloon angioplastied from the junction with the popliteal artery, cross the ostium and into the left common femoral artery. During each inflation the balloon was inflated to just under burst pressure, which according to the side door man's literature, corresponded to a diameter measurement of 5.7 mm. The balloon remained inflated for a minimum of 2 minutes at each level to control vasospasm. Intra-arterial nitroglycerin was injected intermittently into the side arm of the access sheath to further control vasospasm. At the conclusion of this series of angioplasty and arteriogram was performed through the side arm of the access sheath, the tip now located at the distal portion of the left iliac stent which showed brisk in-line flow through the stent into the femoral profundus and throughout the length of the superficial femoral artery as far as the proximal portions of the infrapopliteal arteries on the left. Next in the hopes of further restoring flow at the left iliac stents an 8 mm x 80 mm Passeo balloon was advanced into the stent and the stent was balloon angioplastied from just above its distal tip. The balloon was inflated to nominal pressure which corresponded to approximately 8 mm and remain inflated for 2 minutes. The sheath was drawn back further so that balloon angioplasty could be performed from immediately below the proximal tip of the stent. Again the balloon was inflated to nominal pressure and remained inflated for 2 minutes. With the side arm of the access sheath at the left common iliac ostium, arteriography was performed demonstrating patency of the [place] proximal most portion of the left iliac artery with flow through the stent into the external iliac artery. This arteriogram revealed a small pseudoaneurysm at the medial margin of the proximal most left common iliac artery just above the proximal stent. Review of the initial arteriogram demonstrates this was present on the first aortogram during the procedure. This was not discerned until the time of dictation after the patient left the hospital. Next I wanted to determine if there was a pressure gradient from the right external iliac artery to the aorta to ascertain there was no flow gradient at the right common iliac artery. This measurement would also further support the absence of a significant flow gradient through the left common iliac artery ostium. With the 7-English catheter drawn back into the right external iliac artery and a 5-English catheter located in the aorta the following pressure measurements were acquired (mm Hg): Systolic Diastolic Mean REIA: [id number] Aorta: 102 44 67 Over the wire the access sheath was exchanged for a new 7-English, 11 cm length access sheath intended specifically for percutaneous arterial closure. Through the side arm of the access sheath arteriography of the right common femoral artery demonstrated an appropriate puncture of the common femoral artery above the bifurcation and below the inferior epigastric artery. After an appropriate resterilization of the arteriotomy and exchange for new sterile gloves, a Minx closure device was deployed at the common femoral arteriotomy and pressure held for approximately 15 minutes. There were no signs of bleeding at the percutaneous arterial access site and the site was dressed with sterile gauze and Tegaderm. The patient tolerated the procedure well and was transferred to the intensive care unit for post procedural observation. SUMMARY OF PROCEDURE, IMAGING FINDINGS AND INTERVENTIONS PERFORMED: 1. Diagnostic studies performed: * Diagnostic catheter angiography (necessary to perform the appropriate interventions) was performed with the catheter tip in the right external iliac artery, aorta, left iliac artery stent, left common femoral artery and left superficial femoral artery. * Catheter arteriography was performed of the lower abdominal aorta and bilateral iliac arterial system, the left common femoral artery, the left femoral profundus, the left superficial femoral artery and through to the popliteal artery and superior most infrapopliteal arteries. * At the conclusion of the procedure arteriography was performed through the side arm of the access sheath to image the distal right external iliac artery, right common femoral artery and proximal superficial femoral artery and femoral profundus. 2. Interpretation of diagnostic studies performed: * There appears to be complete resolution of the thrombotic occlusion of the left iliac artery following overnight catheter directed TPA thrombolytic lysis. * There is no evidence of active extravasation at the left common femoral artery where percutaneous access was acquired the previous day. * There is long segment occlusion of the proximal superficial femoral artery with focal stenosis as it courses through Dannie's canal. * Intraluminal arterial pressure measurements, simultaneously acquired at the right external iliac artery and the left iliac artery stent, indicate no flow limiting pressure gradient at the left common iliac artery ostium and the proximal most portion of the artery above the previously placed stent. * Intra-arterial luminal pressure measurements were acquired simultaneously at the right external iliac artery and aorta which demonstrated; 1. That there was no flow limiting gradient between the aorta and left external iliac artery and, 2. That the lack of a arterial pressure gradient at the left common iliac artery ostium was accurate. * Arteriography performed for the purpose of deploying a percutaneous arterial closure device demonstrates adequately patent right external iliac artery, common femoral artery and proximal superficial femoral artery and femoral profundus. 3. Surgical interventions performed: * Catheter and wire revascularization of the left superficial femoral artery followed by balloon angioplasty first with a 4 mm x 100 mm Fortrex balloon followed by a 5 mm x 100 mm Passeo balloon. The 5 mm balloon was inflated just below burst pressure which corresponded to a diameter measurement of 5.7 mm. * Balloon angioplasty through the left iliac arterial stent with an 8 mm x 80 mm Passeo balloon. * Closure of the right common femoral artery was achieved with a Minx closure device followed by 15 minutes of gentle manual pressure. 4. Interpretation of interventions performed: * Final arteriography demonstrated in-line flow documented from the infrarenal abdominal aorta through the previously thrombosed left iliac stent through the revascularized angioplasty left superficial femoral artery with continuous in-line flow seen as far as the proximal infrapopliteal arteries. * Not identified and toe the time of dictation after the patient has left the hospital, there is a small 3 to 5 mm pseudoaneurysm along the medial margin of the left common iliac artery just above the proximal tip of the left iliac artery stent. Plan: 1. Aspirin 325 mg p.o. daily for life. 2. Plavix 75 mg p.o. daily for life. 3. The patient will return to the endovascular clinic 08/10/[address] Roche can evaluate the ecchymosis in his bilateral groins and remove the 2 "figure-of- eight" sutures used to control superficial bleeding at the skin nicks at the left groin. 4. One month IR clinic follow-up residual be preceded by CTA aorta with runoff instead of the more routine LIN. KAREN
== END 2017-08-06 20:40 | disposition home or self-care (01) | DRG 254 ==
LOC: CHICATH 10:25 → ICU 15:07
PROVIDERS: ADMIT Internal Medicine Critical Care Medicine; ATTEND Radiology Diagnostic Radiology
PROC: 047J3ZZ Dilation of Left External Iliac Artery, Percutaneous Approach (ICD-10-PCS; 2017-08-05)
PROC: B41G1ZZ Fluoroscopy of Left Lower Extremity Arteries using Low Osmolar Contrast (ICD-10-PCS; 2017-08-05)
PROC: B41C1ZZ Fluoroscopy of Pelvic Arteries using Low Osmolar Contrast (ICD-10-PCS; 2017-08-05)
PROC: 3E05317 Introduction of Other Thrombolytic into Peripheral Artery, Percutaneous Approach (ICD-10-PCS; 2017-08-05)
PROC: 04HJ33Z Insertion of Infusion Device into Left External Iliac Artery, Percutaneous Approach (ICD-10-PCS; 2017-08-05)
PROC: 047K3ZZ Dilation of Right Femoral Artery, Percutaneous Approach (ICD-10-PCS; principal; 2017-08-05 12:00)
DX: T82.598A Other mechanical complication of other cardiac and vascular devices and implants, initial encounter (principal); I72.3 Aneurysm of iliac artery; I10 Essential (primary) hypertension; F17.210 Nicotine dependence, cigarettes, uncomplicated; I73.9 Peripheral vascular disease, unspecified; R50.9 Fever, unspecified; R58 Hemorrhage, not elsewhere classified; E78.5 Hyperlipidemia, unspecified; D72.829 Elevated white blood cell count, unspecified; Y82.8 Other medical devices associated with adverse incidents; Y92.9 Unspecified place or not applicable
CPT/HCPCS: 36415; 75736; 76937; 80048; 85014; 85018; 85027; 85384; 85730; 87040; 87641; 90686; 90732; 99156; 99157; 99406; A9270-GY; C1725; C1760; C1769; C1887; C1894; J0690; J1644; J2001; J2250; J2270; J2310; J2997; J3010

== ENCOUNTER 2017-09-01 17:18 | Emergency (ER) | payer MEDICARE ==
[2017-09-01] MEDS ORDERED: Ketorolac INJ* 30 MG/ML 1 ML VIAL IV PUSH ONE (19:39)
[2017-09-01] MEDS ORDERED: Morphine INJ* 4 MG/ML 1 ML CARPUJECT IV ONE (19:39)
[2017-09-01] MEDS ORDERED: Ondansetron INJ* 2 MG/ML VIAL IV ONE (19:39)
[2017-09-01 20:08] LABS: Hematocrit 38 % (42-52); Hemoglobin 12.7 g/dl (14.0-18.0); Mean Corpuscular HGB Conc 33 g/dl (31-36); Mean Corpuscular Hemoglobin 33 pg (27-31); Mean Corpuscular Volume 99 fL (80-94); Mean Platelet Volume 8 um3 (7.4-10.4); Red Blood Count 3.87 10^6/ul (4.0-5.4); Red Cell Distribution Width 13 % (10.5-15); White Blood Count 15.8 10^3/ul (3.5-10.8)
[2017-09-01 20:20] LABS: Albumin 4.6 g/dL (3.2-5.2); BUN/Creatinine Ratio 14.2 (8-20); C Reactive Protein 6.34 mg/L (< 5.00); Calcium 9.6 mg/dL (8.6-10.3); EGFR African American 83.5 (>60); EGFR Non-African American 64.9 (>60); Globulin 2.9 g/dL (2-4); Potassium 4.3 mmol/L (3.5-5.0); Total Bilirubin 0.8 mg/dL (0.2-1.0); Total Protein 7.5 g/dL (6.4-8.9)
[2017-09-01] MEDS ORDERED: NS 0.9% 1000 ML* 1,000 ML IV ONE (20:29)
[2017-09-01 22:14] LABS: Urine Bacteria Absent (Absent); Urine Bilirubin Negative (Negative); Urine Glucose Negative (Negative); Urine Nitrite Negative (Negative)
[2017-09-01] MEDS ORDERED: Ciprofloxacin TAB* 500 MG PO ONE (22:17)
[2017-09-01] MEDS ORDERED: oxyCODONE/Acetamin 5/325 MG* TAB PO ONE (22:24)
[2017-09-01 23:08] VITALS: BP 123/59
--- NOTE | 2017-09-03 10:18 | ED ---
Enrique Hill Nilda, scribed for Sukh Oliveros MD on 09/01/17 at 1952 . GI/ HPI - HPI Summary HPI Summary: This patient is a 66 year old M presenting to [facility] accompanied by daughter with a chief complaint of constant left flank pain (radiates throughout left side) while driving home after having CT dye for imaging of LLE four hours ago. The patient rates the pain 8/10 in severity. Symptoms alleviated by nothing. Patient reports nausea and back pain. Patient denies hematuria and dysuria. PMHx includes kidney stone (95). No PMHx aneurism. PSHx stent in LLE and hardware in back. Patient is currently on Plavix and aspirin. - History of Current Complaint Chief Complaint: EDFlankPain Time Seen by Provider: 09/01/17 18:41 Stated Complaint: FLANK PAIN Hx Obtained From: Patient Onset/Duration: Started Hours Ago Timing: Constant Current Severity: Severe Pain Intensity: 8 Location of Pain: Radiates to: - back, Flank - Left flank Associated Signs and Symptoms: Positive: Other: - nausea and back pain. Patient denies hematuria and dysuria. Alleviating Factor(s): Nothing - Additional Pertinent History Primary Care Physician: [id number] - Allergy/Home Medications Allergies/Adverse Reactions: Allergies Allergy/AdvReac Type Severity Reaction Status Date / Time No Known Allergies Allergy Verified 09/01/17 18:16 PMH/Surg Hx/FS Hx/Imm Hx Endocrine/Hematology History: Denies: Hx Diabetes Cardiovascular History: Reports: Hx Hypertension - on medication, Hx Peripheral Vascular Disease Denies: Hx Pacemaker/ICD Respiratory History: Denies: Hx Asthma History: Reports: Hx Kidney Stones - removed 1994 Denies: Hx Dialysis, Hx Renal Disease Musculoskeletal History: Reports: Hx Back Problems, Other Musculoskeletal History - RECURRING GANGLION LEFT WRIST Sensory History: Denies: Hx Contacts or Glasses, Hx Hearing Aid Opthamlomology History: Denies: Hx Contacts or Glasses Psychiatric History: Reports: Hx Depression Denies: Hx Panic Disorder - Surgical History Surgery Procedure, Year, and Place: 3 x right shoulder; lower back; left iliac stent Hx Anesthesia Reactions: No Infectious Disease History: No Infectious Disease History: Denies: Traveled Outside the [place] in Last 30 Days - Family History Known Family History: Negative: Hypertension, Diabetes - Social History Alcohol Use: Weekly Alcohol Amount: 3-4 DRINKS/WEEK Hx Substance Use: Yes Substance Use Type: Reports: Marijuana Substance Use Comment - Amount & Last Used: OCCASIONAL, NOT RECENT Hx Tobacco Use: Yes Smoking Status (MU): Former Smoker Type: Cigarettes Amount Used/How Often: 1 PPD FOR 40 YRS Length of Time of Smoking/Using Tobacco: 40 YRS Have You Smoked in the Last Year: Yes Review of Systems Negative: Fever, Chills Negative: Erythema Negative: Sore Throat Negative: Chest Pain Negative: Shortness Of Breath, Cough Positive: Nausea. Negative: Abdominal Pain, Vomiting Positive: flank pain - left flank pain. Negative: dysuria, hematuria Positive: Other - pain throughout left side, back pain Negative: Rash Neurological: Other - negative dizziness All Other Systems Reviewed And Are Negative: Yes Physical Exam - Summary Physical Exam Summary: Constitutional: Well-developed, Well-nourished, Alert. (-) Distressed Skin: Warm, Dry HENT: Normocephalic; Atraumatic Eyes: Conjunctiva normal Neck: Musculoskeletal ROM normal neck. (-) JVD, (-) Stridor, (-) Tracheal deviation Cardio: Rhythm regular, rate normal, Heart sounds normal; Intact distal pulses; The pedal pulses are 2+ and symmetric. Radial pulses are 2+ and symmetric. (-) Murmur Pulmonary/Chest wall: Effort normal. (-) Respiratory distress, (-) Wheezes, (-) Rales Abd: Soft, (-) Tenderness, (-) Distension, (-) Guarding, (-) Rebound Musculoskeletal: (-) Edema, Left CVA tenderness Lymph: (-) Cervical adenopathy Neuro: Alert, Oriented x3 Psych: Mood and affect Normal Triage Information Reviewed: Yes Vital Signs On Initial Exam: Initial Vitals Temp Pulse Resp BP Pulse Ox 98.1 F 95 20 139/80 96 09/01/17 17:24 09/01/17 17:24 09/01/17 17:24 09/01/17 17:24 09/01/17 17:24 Vital Signs Reviewed: Yes - Lit Coma Scale Coma Scale Total: 15 Diagnostics - Vital Signs Vital Signs Temp Pulse Resp BP Pulse Ox 09/01/17 18:30 79 16 130/70 97 09/01/17 18:17 79 98 09/01/17 18:15 143/82 09/01/17 17:24 98.1 F 95 20 139/80 96 - Laboratory Result Diagrams: 09/01/17 19:55 09/01/17 19:55 Lab Statement: Any lab studies that have been ordered have been reviewed, and results considered in the medical decision making process. Re-Evaluation - Re-Evaluation First Eval Re-Evaluation Time: 20:25 Comment: Hypotensive pressure in the 80s but pain is controlled. Second Eval Re-Evaluation Time: 22:30 Comment: Patient feels better. GIGU Course/Dx - Course Course Of Treatment: This patient is a 66 year old M presenting to [facility] accompanied by daughter with a chief complaint of constant left flank pain ( radiates throughout left side) while driving home after having CT dye for imaging of LLE four hours ago. The patient rates the pain 8/10 in severity. Symptoms alleviated by nothing. Patient reports nausea and back pain. Patient denies hematuria and dysuria. PMHx includes kidney stone (95). No PMHx aneurism. PSHx stent in LLE and hardware in back. Patient is currently on Plavix and aspirin. Patient will be discharged with a diagnosis of uretral stone with hydroureter. Patient was instructed to follow up with Dr. Ríos ( Urologist) in 2-3 days. Patient is agreeable with this plan. - Diagnoses Provider Diagnoses: URETERAL STONE WITH HYDROURETER Discharge - Discharge Plan Condition: Stable Disposition: HOME Patient Education Materials: Ureteral Stones (ED) Referrals: To Ríos MD [Medical Doctor] - 3 Days Additional Instructions: RETURN TO THE EMERGENCY DEPARTMENT FOR CHANGING OR WORSENING SYMPTOMS. The documentation as recorded by the Enrique mccormick Nilda accurately reflects the service I personally performed and the decisions made by me, Sukh Oliveros MD.
== END 2017-09-01 23:06 | disposition home or self-care (01) ==
LOC: ED 17:18
DX: N20.1 Calculus of ureter (principal); N13.4 Hydroureter; R10.84 Generalized abdominal pain; R11.0 Nausea; M54.9 Dorsalgia, unspecified
CPT/HCPCS: 36415; 80053; 81003; 81015; 83605; 83690; 85025; 86140; 96374; 96375; 99284; A9270-GY; J1885; J2270; J2405